=== PATIENT | male | born 1985 | race Caucasian/White ===

== ENCOUNTER 2022-03-22 17:22 | Outpatient (CLI) | payer BC, SELFPAY ==
--- NOTE | 2022-03-22 | DI.RAD_ITS ---
Exam(s) XR FINGER RT MIDDLE EXAM: XR FINGER RT MIDDLE CLINICAL HISTORY: ABSCESS, FINGER, RIGHT. TECHNIQUE: 2D digital imaging was performed of the right finger. Three views were obtained. PA/AP, oblique, and lateral views were obtained. COMPARISON: No exams were available for comparison FINDINGS: BONES: No acute fracture is present. No bony destructive lesion is seen. JOINTS: No dislocation present. SOFT TISSUE: There is soft tissue swelling of the finger. IMPRESSION: No acute osseous abnormality. DATA REPOSITORY: RADIATION DOSE DELIVERED:
--- NOTE | 2022-03-22 18:13 | DI.VRAD_ITS ---
PROCEDURE INFORMATION: Exam: XR Right Finger(s) Exam date and time: 03/22/2022 17:39 Age: 37 years old Clinical indication: Other: Right finger abscess; Patient HX: Right middle finger abscess TECHNIQUE: Imaging protocol: Radiologic exam of the Right fingers. Views: Minimum 2 views. COMPARISON: No relevant prior studies available. FINDINGS: Bones/joints: No acute fracture or subluxation. No focal osseous erosion. Soft tissues: Digital soft tissue swelling. IMPRESSION: No acute bony pathology. Dictated and Authenticated by: Kristen Beltrán MD. Ordering:ABE MILES MD
== END 2022-03-22 17:42 ==
PROVIDERS: PCP Family Medicine; Visit Provider Nurse Practitioner Family
DX: L02.511 Cutaneous abscess of right hand (principal)
CPT/HCPCS: 73140

== ENCOUNTER 2023-03-19 09:43 | Emergency (ER) | payer OTHER, SELFPAY ==
[2023-03-19 09:46] VITALS: BP 161/92; PULSE 81; RESP 18; TEMP 36.7; O2SAT 100
--- NOTE | 2023-03-19 10:00 | DI.RAD_ITS ---
Exam(s) XR CHEST 2V PA LATERAL XR THORACIC SPINE COMPLETE EXAM: XR CHEST 2V PA LATERAL and XR thoracic spine complete CLINICAL HISTORY: pain rt lower TECHNIQUE: 2D digital imaging was performed of the thoracic spine and chest. Seven images were obta ined. PA and lateral views were obtained. COMPARISON: There are no priors for comparison. FINDINGS: MEDIASTINUM: Normal. HEART: Normal. PULMONARY VASCULATURE: Normal. LUNGS: Clear. PLEURAL SPACE: No pleural effusion or pneumothorax. BONE:Within normal limits for the patient's age. OTHER FINDINGS:There are degenerative changes seen in the thoracic spine characterized by disc space narrowing and endplate osteophytes. The paraspinal lines are unremarkable. IMPRESSION: No acute pulmonary findings. DATA REPOSITORY: RADIATION DOSE DELIVERED:
--- NOTE | 2023-03-19 10:22 | ED.GENADUL_ITS ---
Discharge Plan Disposition Patient Disposition: Home Condition: Stable Discharge Details Clinical Impression: Right-sided thoracic back pain, Right-sided chest wall pain Primary Care Provider: Faby Goss ED Provider: Merrill Markham Home Meds and New Rx's Prescriptions: Continued dextroamphetamine-amphetamine 20 mg capsule,extended release 24hr 20 mg PO DAILY Patient Comments: TAKE ONE CAPSULE BY MOUTH EVERY MORNING Discontinued citalopram [Celexa] 40 MG tablet 40 mg PO DAILY Qty: 90 Patient Comments: pt states not taking lorazepam [Ativan] 1 MG tablet 1 mg PO HS PRN Patient Comments: pt states not taking Discharge Instructions Instructions: Chest Wall Pain (ED) Additional Instructions: Please follow-up with your primary care physician. Call tomorrow to schedule follow-up. Lidocaine patches were applied today. Please remove these in 12 hours. Please take ibuprofen over the counter. Take 600mg by mouth every 6 hours as needed for pain. Please use [id number] lidocaine patches. Dose according to label. Please contact your primary care physician to arrange follow-up. Return to the ER immediately for any worsening or new concerning symptoms. Medical Decision Making 1025 --38-year-old male here with right anterior lower chest wall pain that is worse on palpation and also with associated right mid back pain. Abdominal exam is benign. Lungs clear to auscultation bilaterally. Patient hemodynamically stable. Patient focally tender to palpation right anterior lower rib as well as paraspinal right T9. No associated rash. Suspect musculoskeletal etiology. Will obtain x-ray imaging to assess for bony abnormality. Will apply lidocaine patch for discomfort. 1151 --patient reassessed: Still having discomfort. I recommended Toradol and patient declined. x-ray of the chest and thoracic spine interpreted by radiology: FINDINGS: MEDIASTINUM: Normal.? HEART: Normal. PULMONARY VASCULATURE: Normal. LUNGS: Clear. ? PLEURAL SPACE: No pleural effusion or pneumothorax. BONE:Within normal limits for the patient's age.? OTHER FINDINGS:There are degenerative changes seen in the thoracic spine characterized by disc space narrowing and endplate osteophytes.? The paraspinal lines are unremarkable. IMPRESSION: No acute pulmonary findings. I am concerned about potential for nerve root irritation. Labs reviewed and nondiagnostic. No leukocytosis. Normal LFTs. Normal lipase. All results were discussed with patient. I will refer him for continued outpatient work-up by PCP. HPI General Mode of arrival: ambulatory . Date/Time Provider Initiated Documentation: 03/19/23 09:53 . Limitations to Documentation: no limitations . Information obtained by: patient . HPI Narrative: 38-year-old male presents with chief complaint of right lower anterior rib pain that started about 2 months ago and has persisted. Pain waxes and wanes but is more severe than with it started. Patient notes pain is worse with palpation of his lower rib and with certain positions. Patient also notes pain focally in his right mid to upper back. No associated shortness of breath. Denies trauma. He denies associated rash. No history of IV drug use. Related Data Home Medications Medication Instructions Recorded Confirmed dextroamphetamine-amphetamine ER 20 mg PO DAILY 03/19/23 03/19/23 20 mg 24hr capsule,extend release Allergies Allergy/AdvReac Type Severity Reaction Status Date / Time strawberry [[place]] Allergy Mild HIVES Unverified 02/20/13 14:58 CAT HAIR Allergy Mild ITCHY EYES Uncoded 02/19/13 10:31 General Stated Complaint: Abd Prob NEGAR: 3 Review of Systems All systems reviewed & are unremarkable except as noted in HPI and below Constitutional Constitutional: Denies fever(s) Cardiovascular Cardiovascular: Reports as per HPI and Reports chest pain PFSH All Active Problems (Updated 03/19/23 @ 11:54 by Merrill Markham MD) Right-sided thoracic back pain (Acute) Right-sided chest wall pain (Acute) Surgical History (Updated 07/10/18 @ 14:33 by bepretty IA) Myringotomy w/ PE (pressure equalizing) tubes Nasal septoplasty Family History Mother Hyperlipidemia Father Diabetes Brother No problems noted. Grandfather Heart disease Grandfather Personal history of malignant neoplasm PANCREATIC Grandmother No problems noted. Grandmother Hypertensive disorder, systemic arterial Social History Smoking/Tobacco Use Status: Never Smoking risk assessment performed?: Yes Alcohol Intake: never Drug use: Occasionally Substance use type: marijuana Do you feel safe at home: Yes Do you feel safe in your relationship?: Yes Exam Const General: cooperative and no acute distress HENMT Mouth: moist mucous membranes Eyes Conjunctivae: normal conjunctivae Sclera: normal sclerae Neck Neck: trachea midline and supple Chest Chest: tenderness (rt anterior lower rib focally ttp) Resp Auscultation: clear to auscultation bilaterally, no rales, no rhonchi and no wheezes Cardio Rate: regular rate and not tachycardic Rhythm: regular rhythm GI Palpation: soft, not firm, no guarding, no masses, not rigid and nontender Skin General skin exam: no rashes or lesions noted Neuro General: patient alert, patient awake, patient oriented x3 and tone normal Extrem General: no calf tenderness and no edema Psych Appearance: grossly normal Mental Status: mental status grossly normal Course Vital Signs Vital signs: Vital Signs Temperature 36.7 C 03/19/23 09:46 Pulse 81 03/19/23 09:46 Respiratory Rate 18 03/19/23 09:46 Blood Pressure 161/92 H 03/19/23 09:46 Pulse Oximetry 100 03/19/23 09:46 Temperature 36.7 C 03/19/23 09:46 Temperature Source Oral 03/19/23 09:46 Pulse 81 03/19/23 09:46 Respiratory Rate 18 03/19/23 09:46 Respiratory Effort Normal, Non-Labored 03/19/23 09:50 Blood Pressure 161/92 H 03/19/23 09:46 Blood Pressure Position Sitting 03/19/23 09:46 Pulse Oximetry 100 03/19/23 09:46 Pain Level 7 03/19/23 09:46
[2023-03-19 10:42] LABS: Abs Immature Grans 0.01 10^3/uL (0.0-0.06); Absolute Basophil Count 0.02 10^3/uL (0.0-0.2); Absolute Eosinophil Count 0.02 10^3/uL (0.0-0.7); Absolute Lymphocyte Count 0.83 10^3/uL (1.2-3.4); Absolute Monocyte Count 0.57 10^3/uL (0.1-0.8); Absolute Neutrophil Count 2.34 10^3/uL (1.2-6.7); Basophils % 0.5; Eosinophils % 0.5; HCT 47.2 % (40.0-50.0); HGB 16.2 g/dL (13.5-17.5); Immature Grans % 0.3; Lymphocytes % 21.9; MCH 30.1 pg (27.0-33.0); MCHC 34.3 % (32.0-36.0); MCV 88 fL (80-95); MPV 9.5 fL (8.0-11.0); Neutrophils % 61.8; Platelet Count 158 10^3/uL (130-400); RBC 5.38 10^6/uL (4.36-5.78); RDW 12.3 % (11.8-14.1); RDW-SD 39.3 fL; WBC 3.79 10^3/uL (4.4-10.8)
[2023-03-19 10:57] LABS: ALT 53 U/L (16-63); AST 26 U/L (15-37); Albumin 4.2 g/dL (3.4-5.0); Alkaline Phosphatase 70 U/L (46-116); Anion Gap 9.4 mmol/L (3-11); BUN 14 mg/dL (7-18); Bilirubin, Total 0.9 mg/dL (0.2-1.0); CO2 27.6 mmol/L (21.0-32.0); CREATININE 0.9 mg/dL (0.70-1.30); Calcium 8.9 mg/dL (8.5-10.1); Chloride 102 mmol/L (98-107); Estimated GFR 113.51 (mL/min/1.73m2); Glucose 99 mg/dL (74-106); Lipase 29 U/L (16-77); Sodium 139 mmol/L (136-145); Total Protein 7.8 g/dL (6.4-8.2)
[2023-03-19] MEDS: Lidocaine 5% Patch 1 PATCH TP ×2 (11:15→12:01)
== END 2023-03-19 12:08 | disposition home or self-care (01) ==
PROVIDERS: Emergency Provider Student in an Organized Health Care Education/Training Program
DX: M54.6 Pain in thoracic spine (principal); R07.89 Other chest pain
CPT/HCPCS: 80053; 83690; 99284; 71046; 72072; 85025; 99283